=== PATIENT | female | born 1950 | race Caucasian/White ===

== ENCOUNTER 2020-01-27 08:31 | Inpatient (IN) | payer MEDICARE, OTHER ==
[2020-01-27] VITALS (9 sets, daily range): BP systolic 97–132; BP diastolic 51–59
[~2020-01-27] VITALS: Ht 157.4 cm; Wt 94.9 kg
--- NOTE | 2020-01-27 09:05 | NUR ---
PATIENT STATES HAS AN OPEN AREA ON BUTTOCK AREA. DENIES WANTING PICTURE TAKEN.
[2020-01-27 09:12] LABS: HEMATOCRIT 36.2 % (37.0-47.0); MEAN CELL VOLUME 93.5 fl (81.0-99.0); MEAN CORPUSCULAR HGB 30.7 pg (27.0-31.0); MEAN CORPUSCULAR HGB CONC 32.9 g/dl (33.0-37.0); MEAN PLATELET VOLUME 9.8 fl (9.6-12.3); PLATELET COUNT AUTOMATED 508 10*3/uL (130-400); RED BLOOD COUNT 3.87 10*6/uL (4.10-5.10); RED CELL DISTRI WIDTH 13.3 % (0-14.5); WHITE BLOOD COUNT 11.9 10*3/uL (4.8-10.8)
[2020-01-27 09:23] LABS: INTERNATIONAL NORM RATIO 1.1 (2.0-3.5)
[2020-01-27 09:27] LABS: ALBUMIN 2.3 gm/dl (3.1-4.5); ALKALINE PHOSPHATASE 111 U/L (45-117); CHLORIDE 92 mmol/L (98-107); CREATININE 2.76 mg/dL (0.55-1.02); LIPASE 56 U/L (73-393); SGOT/AST 22 IU/L (3-35); SGPT/ALT 34 U/L (12-78); SODIUM 127 mmol/L (136-145); TOTAL PROTEIN 7.5 gm/dL (6.4-8.2)
[2020-01-27 09:30] LABS: BUN 35 mg/dl (7-24); TROPONIN I < 0.015 ng/ml (<0.045)
[2020-01-27 09:32] LABS: PLATELET SUFFICIENCY HIGH (NORMAL); TOTAL CELLS COUNTED 100 #CELLS
--- NOTE | 2020-01-27 09:32 | NUR ---
DAUGHTER NUMBER "LENNOX" [phone]
--- NOTE | 2020-01-27 11:34 | NUR ---
LYING IN BED RT LATERAL, RESPS EASY, EYES CLOSED.
--- NOTE | 2020-01-27 11:49 | NUR ---
PT STATES "I WISH THEY WOULD LET ME GO HOME". PT TELLS ME THAT SHE IS FEELING BETTER, STILL TIRED.
--- NOTE | 2020-01-27 12:14 | NUR ---
UPTO BEDSIDE COMMODE, TOLERATED WELL. PROVIDED URINE SPECIMIN.
[2020-01-27 12:36] LABS: BILIRUBIN NEGATIVE (NEGATIVE); BLOOD TRACE-LYSED (NEGATIVE); CLARITY CLOUDY (CLEAR); COLOR YELLOW (YELLOW); GLUCOSE 3+ (NEGATIVE); KETONE TRACE (NEGATIVE); LEUKO ESTERASE 2+ (NEGATIVE); NITRITE NEGATIVE (NEGATIVE); UROBILINOGEN 0.2 E.U./dl (0.2-1.0)
[2020-01-27 12:37] LABS: BACTERIA 3+; EPITHELIAL CELLS 21-30; RBC 21-30 rbc/hpf (0-2); WBC TNTC wbc/hpf (0-5)
[2020-01-27 12:41] LABS: YEAST 2+
--- NOTE | 2020-01-27 12:43 | NUR ---
DAUGHTER LENNOX CALLED FOR WELL BEING.
--- NOTE | 2020-01-27 13:37 | NUR ---
UNABLE TO TAKE PT TO ROOM 4009 D/T ROOM NEEDING CLEANED.
--- NOTE | 2020-01-27 14:30 | NUR ---
The assessment has been completed. NATHANIEL CLAY Time: 1430 A 69 year old FEMALE admitted to under services of DR. LIN SEWELL,BERTA Laughlin Pt. arrived via ambulatory from ER. Chief complaint: SENT FROM DR GEORGES OFFICE FOR HYPERGLYCEMIA. STATES SHE HAS BEEN FEELING LOUSY. REPORTS BLOOD SUGAR OF 550. NATHANIEL CLAY
--- NOTE | 2020-01-27 14:35 | NUR ---
PT REFUSING TO HAVE ANYONE LOOK AT BUTTOCKS WOUND. SHE STATES IS WAS AN ABSCESS AND WAS BEING TREATED BY DR ACOSTA WITH BACTRIM. EXPLAINED TO HER THAT WE JUST NEED TO PHOTOGRAPH AND MEASURE IT AND SHE CONTINUES TO REFUSE TREATMENT. WILL TELL DR CEBALLOS.
--- NOTE | 2020-01-27 15:00 | NUR ---
MED REC COMPLETE WITH PTS DAUGHTER LENNOX
[2020-01-27] MEDS ORDERED: TOPROL XL200 MG PO (15:19)
[2020-01-27] MEDS ORDERED: ALDACTONE100 MG PO (15:19)
[2020-01-27] MEDS ORDERED: DAILY VITE1 EACH PO (15:19)
[2020-01-27] MEDS ORDERED: SEPTDS PO (15:20)
[2020-01-27] MEDS ORDERED: VENT7GM INH (15:20)
[2020-01-27] MEDS ORDERED: ASPIRIN ADULT L81 M1 PO (15:20)
--- NOTE | 2020-01-27 15:27 | NUR ---
SPOKE WITH DR CEBALLOS REGARDING ADMISSION ORDERS. MED LIST COMPLETED OVER THE PHONE. STATES TO PUT IN SLIDING SCALE W COVERAGE Q4H, DIABETIC TEACHING, A NON CONCENTRATED SWEETS DIET, NORMAL SALINE @ 60ML/H, BMP IN AM, CONSULT DR BRADSHAW AND DR MAY. ORDERS VERIFIED AND REPEATED BACK.
--- NOTE | 2020-01-27 15:48 | NUR ---
DR BRADSHAW NOTIFIED OF NEW CONSULT. STATES TO KEEP FLUIDS @ 60ML/H, START 1G ROCEPHIN IV TOMORROW, OBTAIN URINE LYTES/CREATINE AND UREANITROGEN. ORDERS VERIFIED AND REPEATED BACK
--- NOTE | 2020-01-27 15:52 | NUR ---
DR MAY NOTIFIED OF NEW CONSULT. STATES TO MAKE PT NPO AFTER MIDNIGHT.
--- NOTE | 2020-01-27 17:25 | NUR ---
PT C/O 01/29 CHRONIC ACHING HIP/BACK PAIN. MEDICATED PER ORDER .WILL MONITOR FOR RELIEF. VOICES NO OTHER CONCERNS AT THIS TIME. RESTING IN BED. CALL LIGHT WITHIN REACH.
--- NOTE | 2020-01-27 18:16 | NUR ---
PT AGREEABLE TO DO WOUND MEASUREMENTS AND PHOTOS AT THIS TIME. WILL UPDATE WOUND SCREEN
--- NOTE | 2020-01-27 18:25 | NUR ---
TYLENOL EFFECTIVE PER PT
--- NOTE | 2020-01-27 18:29 | NUR ---
Patient resting quietly with no c/o discomfort. Respirations easy and regular. Vital signs stable. No overt distress. HISSOM,NATHANIEL
[2020-01-27 21:15] LABS: URINE CREATININE RANDOM 88.4 mg/dL
[2020-01-28] VITALS: BP 101/52
--- NOTE | 2020-01-28 04:03 | NUR ---
VALERIANO HOFFMAN [id number] Please refer to the physician's history and physical for past medical history, comorbid conditions, and allergies. Diagnosis: UTI ARF HYPERGLYCEMIA SEVERE SEPSIS DEHYDRATION Alexander Score: 21,LOW OR NO RISK WOUND DESCRIPTIONS: Wound Number: 1 Location of the wound: left buttocks Thickness: Full Size: 2.5cm x 1.5cm x 7.5cm Tunneling: none Undermining: none Sinus Tract: none Presence of Exudate: Purulent Amount: Moderate Color: Red, yellow Odor: None Periwound Skin Appearance: Erythema Wound edges: approximated Pain (associated with wound): none at time of assessment How does patient state this happened? pt stated this started about one month ago and she stated that if she needs anything on discharge her son in law will take care of it Surface the patient is resting on: Isoflex SKIN PREVENTION RECOMMENDATION: 1. Pressure redistribution support surface as appropriate 2. Elevate heels 3. Remove boots/TEDS every shift and reapply 4. Head of bed 30 degrees as tolerated 5. Assess nutrition and hydration 6. Manage moisture 7. Avoid the use of containment devices while in bed 8. Use absorptive products on surfaces limit layers of linens on bed 9. Turn and reposition every 1-2 hours in bed and every 1 hour in chair as tolerated 10. Weight shifts every 15 minutes while up in chair 11. Offloading with pillows or device to keep heels elevated off bed 12. Monitor skin at least every shift 13. Inspect under medical devices twice a day WOUND TREATMENT RECOMMENDATIONS: Dr. Shaw is already on consult Cleanse left buttocks with nss and apply sureprep around the wound lightly pack with maxorb rope and cover with dsd daily and prn for soiling. Wheelchair cushion when oob Patient states her son in law with take care of area of the area upon discharge
[2020-01-28 05:30] LABS: CREATININE 1.58 mg/dL (0.55-1.02); POTASSIUM 4.9 mmol/L (3.5-5.1)
[2020-01-28 06:05] LABS: HEMATOCRIT 30.5 % (37.0-47.0); MEAN CELL VOLUME 95.3 fl (81.0-99.0); MEAN CORPUSCULAR HGB 30.6 pg (27.0-31.0); MEAN CORPUSCULAR HGB CONC 32.1 g/dl (33.0-37.0); MEAN PLATELET VOLUME 9.7 fl (9.6-12.3); PLATELET COUNT AUTOMATED 428 10*3/uL (130-400); RED CELL DISTRI WIDTH 13.5 % (0-14.5); WHITE BLOOD COUNT 9.4 10*3/uL (4.8-10.8)
[2020-01-28 07:05] LABS: TOTAL CELLS COUNTED 100 #CELLS
[2020-01-28 07:06] LABS: PLATELET SUFFICIENCY HIGH (NORMAL); POLYCHROMASIA SLIGHT
--- NOTE | 2020-01-28 07:30 | NUR ---
PT RESTING IN BED. RESPS EASY AND NON LABORED. NO S/S OF DISTRESS NOTED. VSS. WHITE BOARD UPDATED. CALL LIGHT WITHIN REACH.
--- NOTE | 2020-01-28 07:36 | NUR ---
Spoke with Dr. Shaw regarding wound care recommendation and skin impairment. He states to go ahead and order the culture he wants to evaluate patient prior to ordering studies at this time. He stated to go ahead and put dressing change orders in and he will see her later today.
[2020-01-28 08:00] VITALS: BP 94/53
--- NOTE | 2020-01-28 08:02 | NUR ---
BLOOD SUGAR TAKEN FROM MORNING LAB WORK-197. PT IS NPO AND NO COVERAGE WILL BE GIVEN AT THIS TIME
--- NOTE | 2020-01-28 08:06 | NUR ---
WOUND CARE PREFORMED AT THIS TIME PER ORDERS AND CULTURE OBTAINED. PT TOLERATED WELL.
--- NOTE | 2020-01-28 10:19 | NUR ---
Shift chart check completed.
--- NOTE | 2020-01-28 11:07 | NUR ---
PER DR MAY PT CAN RESUME DIET-NO SURGERY TODAY AND IT IS OKAY TO DISCHARGE FROM HIS STANDPOINT
--- NOTE | 2020-01-28 11:21 | NUR ---
Face Boss in to talk to patient. Patient states lives at HOME with ALONE. There are 2 steps in the home. Physician: DAVE Pharmacy: [facility] health services: NONE Patient's level of ADLs: INDEPENDENT Patient has working utilities: YES DME: [facility] IF SHE SHE NEEDS IT Follow-up physician's appointment after d/c: PREFERS TO MAKE OWN AFTER DISCHARGE. Does patient want to access PORTAL?: NO Discharge plan PT LIVES AT HOME ALONE AND IS INDEPENDENT IN HER CARE. DENIES SHE WILL HAVE NEEDS ON DISCHARGE. PLAN IS TO RETURN HOME WHEN MEDICALLY STABLE. WILL CONTINUE TO FOLLOW. STATES SHE WILL HAVE A RIDE HOME.. BENEDICTO KOEHLER
[2020-01-28 12:00] VITALS: BP 110/50
--- NOTE | 2020-01-28 12:21 | NUR ---
Nutritional Support Services Note: Diet copy left with pt. Pt is not availabe at this time. NCS diet sheet given. Encouraged her to call me with any questions or concerns. Chrissy Woo Rdn Ld
[2020-01-28 16:00] VITALS: BP 119/63
--- NOTE | 2020-01-28 16:07 | NUR ---
PT C/O 01/29 CHRONIC ACHING BACK/HIP PAIN. MEDICATED PER ORDER .WILL MONITOR FOR RELIEF. VOICES NO OTHER CONCERNS AT THIS TIME. RESTING IN BED TALKING TO HER GRANDSON. CALL LIGHT WITHIN REACH
--- NOTE | 2020-01-28 17:07 | NUR ---
TYLENOL EFFECTIVE PER PT
[2020-01-28 20:00] VITALS: BP 91/53
--- NOTE | 2020-01-28 22:08 | NUR ---
BP LOW 92/50; TOPROL HELD FOR 2200. PT VERBALIZES OK AND THAT HER PRESSURE HAS BEEN RUNNING LOW. EDUCATED TO ALERT NURSE FOR SYMPTOMS; VERBALIZED UNDERSTANDING. CALL LIGTH IN REACH.
--- NOTE | 2020-01-28 22:11 | NUR ---
ATTEMPT TO COMPLETE WOUND CARE AT THIS TIME. PLEASANTLY REFUSING AND STATES DOES NOT WANT IT "MESSED WITH" AND WOULD RATHER RN PLACE AN ABD PAD OVER THE AREA TO ABSORB DRAINAGE. EDUCATED ON ORDERS REC'D FROM WOUND CARE AND DOCTOR AND RATIONALE; PT VERBALIZES UNDERSTANDING AND STILL REQUESTING ABD.
--- NOTE | 2020-01-28 23:38 | NUR ---
WOUND CARE TO BUTTOCK INCLUDED CLEANING WITH NSS AND APPLYING ABD PAD PER REQUEST. PT REFUSING TO HAVE PACKED PER ORDERS AT THIS TIME. LINENS CHANGED AND NEW BED PAD. ADDITIONAL ABD PAD PROVIDED AT BEDSIDE FOR SOILAGE.
[2020-01-29 01:49] VITALS: BP 108/54
--- NOTE | 2020-01-29 07:45 | NUR ---
PATIENT'S BUTTOCK WOUND CLEANSED, PACKED WITH MAXORB, AND COVERED WITH DRY, STERILE, DRESSING, PT TOLERATED WELL.
[2020-01-29 08:00] VITALS: BP 108/66; BP 128/70
[2020-01-29 08:09] LABS: CREATININE,URINE 84.4 mg/dL (Not Estab.)
--- NOTE | 2020-01-29 08:12 | NUR ---
PT MEDICATED WITH PO TYLENOL AT THIS TIME PER ORDER FOR COMPLAINTS OF BIALT LEG PAIN 05/01. WILL MONITOR FOR EFFECTIVENESS.
--- NOTE | 2020-01-29 09:12 | NUR ---
PER PATIENT, PRN TYLENOL HAS BEEN EFFECTIVE. RESTING AT THIS TIME.
[2020-01-29 12:00] VITALS: BP 103/70
--- NOTE | 2020-01-29 14:40 | NUR ---
PT DENIES ANY NEEDS AT THIS TIME. RESTING WITH NO COMPLAINTS. DRESSING STILL DRY/INTACT TO BUTTOCKS.
--- NOTE | 2020-01-29 15:40 | NUR ---
PATIENT MEDICATED WITH PO TYLENOL AT THIS TIME PER ORDER FOR COMPLAINTS OF BILAT LEG PAIN 03/31. WILL MONITOR FOR EFFECTIVENESS
[2020-01-29 16:00] VITALS: BP 115/65
[2020-01-29 20:00] VITALS: BP 116/59
--- NOTE | 2020-01-29 21:09 | NUR ---
WOUND CARE COMPLETED AT THIS TIME PER ORDERS. PT TOLERATED WELL.
--- NOTE | 2020-01-29 23:55 | NUR ---
TYLENOL GIVEN PER PT REQUEST FOR C/O ARTHRITIC PAIN TO HANDS.
[2020-01-30] VITALS: BP 121/62
[2020-01-30 06:17] LABS: HEMATOCRIT 30.8 % (37.0-47.0); MEAN CELL VOLUME 96.9 fl (81.0-99.0); MEAN CORPUSCULAR HGB 30.2 pg (27.0-31.0); MEAN CORPUSCULAR HGB CONC 31.2 g/dl (33.0-37.0); MEAN PLATELET VOLUME 9.8 fl (9.6-12.3); PLATELET COUNT AUTOMATED 382 10*3/uL (130-400); RED BLOOD COUNT 3.18 10*6/uL (4.10-5.10); RED CELL DISTRI WIDTH 13.8 % (0-14.5); WHITE BLOOD COUNT 8.1 10*3/uL (4.8-10.8)
[2020-01-30 06:23] LABS: BUN 17 mg/dl (7-24); CHLORIDE 113 mmol/L (98-107); POTASSIUM 4.3 mmol/L (3.5-5.1); SODIUM 138 mmol/L (136-145)
[2020-01-30 06:52] LABS: BASOPHILS 1 % (0-1); PLATELET SUFFICIENCY NORMAL (NORMAL); TOTAL CELLS COUNTED 100 #CELLS
[2020-01-30 08:00] VITALS: BP 110/64
--- NOTE | 2020-01-30 08:55 | NUR ---
PT MEDICATED WITH TYLENOL UPON REQUEST FOR PAIN IN LEGS AND ABSCESS 03/01. WILL MONITOR.
--- NOTE | 2020-01-30 09:55 | NUR ---
PT STATES TYLENOL WAS EFFECTIVE. DRESSING CHANGE COMPLETE AT THIS TIME AND REPEAT WOUND CULTURE OBTAINED. PT TOLERATED WELL.
[2020-01-30 12:00] VITALS: BP 114/58
[2020-01-30 16:00] VITALS: BP 100/64
--- NOTE | 2020-01-30 19:54 | NUR ---
MEDICATED WITH TYLENOL FOR C/O PAIN.
[2020-01-30 20:00] VITALS: BP 112/70
--- NOTE | 2020-01-30 22:00 | NUR ---
RESTING IN BED WITH EYES CLOSED; TYLENOL APPARENTLY EFFECTIVE. AROUSES EASILY FOR MEDICATION. VOICES NO C/O AT THIS TIME. CALL LIGHT WITHIN REACH.
[2020-01-31] VITALS: BP 105/51
--- NOTE | 2020-01-31 | NUR ---
Pt. blood sugar result 263. Covered with 6 units of HUMALOG Insulin as ordered. ISH CEVALLOS
--- NOTE | 2020-01-31 02:29 | NUR ---
Patient resting quietly with no c/o discomfort. Respirations easy and regular. Vital signs stable. No overt distress. ISH CEVALLOS
--- NOTE | 2020-01-31 04:51 | NUR ---
TYLENOL GIVEN PER PATIENT REQUEST FOR COMPLAINTS OF PAIN RATED 5/10. WILL ASSESS EFFECTIVENESS.
[2020-01-31 08:00] VITALS: BP 105/53
--- NOTE | 2020-01-31 10:20 | NUR ---
Nutritional Support Services Note: Follow up done with pt for NCS diet. Discussing diet and po intake. She states she lives alone and doesn't always do meals for herself. Discussed healhty eating options and proper portion sizes. Discussed need for protein in diet. Encouraged follow up if needed. All quesitons were answered. Chrissy Woo Rdn Ld
--- NOTE | 2020-01-31 11:52 | NUR ---
PT CONTINUES TO DENY SHE HAS NEEDS AT HOME. STATES I HAVE EVERYTHING I NEED ALREADY. CAN BE DISCHARGED TO HOME WHEN MEDICALLY STABLE.
[2020-01-31 12:00] VITALS: BP 116/60
--- NOTE | 2020-01-31 13:00 | NUR ---
EATING LUNCH. NOT AVAILALBE FOR ECHO.
[2020-01-31] MEDS ORDERED: GLIMEPIRIDE4 M1 PO (15:48)
[2020-01-31 16:00] VITALS: BP 112/56
--- NOTE | 2020-01-31 16:14 | NUR ---
PT REFUSES HOME HEALTH, STATES I HAVE EVERYTHING IN NEED ALREADY.
--- NOTE | 2020-01-31 16:37 | NUR ---
PATIENT WAS ALREADY DRESSED AND READY TO GO. FRESH DRESSINGS HAD ALREADY BEEN APPLIE, SHE DID NOT WANT PHOTOS TAKEN
--- NOTE | 2020-01-31 16:44 | NUR ---
Discharge instructions reviewed with patient/family. Patient receptive and verbalizes understanding. Follow-up care arranged. Written instructions given to patient/family. ESTHER GERONIMO
== END 2020-01-31 16:44 | disposition home or self-care (01) | DRG 682 ==
LOC: ED 08:31 → EDHOLD 13:04 → 4E 13:04 → 4NE 13:32 → 4E 14:00
PROVIDERS: Emergency Medicine; Internal Medicine; Internal Medicine Nephrology; ADMIT Internal Medicine
DX: N17.0 Acute kidney failure with tubular necrosis (principal); E11.00 Type 2 diabetes mellitus with hyperosmolarity without nonketotic hyperglycemic-hyperosmolar coma (NKHHC); L02.31 Cutaneous abscess of buttock; E87.1 Hypo-osmolality and hyponatremia; N39.0 Urinary tract infection, site not specified; E11.22 Type 2 diabetes mellitus with diabetic chronic kidney disease; I12.9 Hypertensive chronic kidney disease with stage 1 through stage 4 chronic kidney disease, or unspecified chronic kidney disease; N18.9 Chronic kidney disease, unspecified; E86.0 Dehydration; E87.8 Other disorders of electrolyte and fluid balance, not elsewhere classified; J44.9 Chronic obstructive pulmonary disease, unspecified; M19.90 Unspecified osteoarthritis, unspecified site; E87.5 Hyperkalemia; E11.65 Type 2 diabetes mellitus with hyperglycemia; E66.01 Morbid (severe) obesity due to excess calories; Z68.38 Body mass index [BMI] 38.0-38.9, adult; Z88.0 Allergy status to penicillin; Z98.891 History of uterine scar from previous surgery; Z91.19 Patient's noncompliance with other medical treatment and regimen

== ENCOUNTER 2021-07-11 20:01 | Emergency (ER) | payer MEDICARE, OTHER ==
[~2021-07-11 20:01] MED LIST: ALDACTONE100 MG PO; ASPIRIN ADULT L81 M1 PO; DAILY VITE1 EACH PO; GLIMEPIRIDE4 M1 PO; SEPTDS PO; TOPROL XL200 MG PO; VENT7GM INH
[2021-07-11] MEDS ORDERED: SEPTDS PO (20:16)
[2021-07-11 20:33] LABS: BASO % 0.4 % (0.0-1.0); EOS % 0.4 % (1.0-4.0); HEMATOCRIT 40.9 % (37.0-47.0); LYMPH # 2.4 10*3/uL (1.3-4.4); LYMPH % 22.6 % (27.0-41.0); MEAN CELL VOLUME 94.9 fl (81.0-99.0); MEAN CORPUSCULAR HGB 31.3 pg (27.0-31.0); MEAN PLATELET VOLUME 10.1 fl (9.6-12.3); MONO # 0.7 10*3/uL (0.1-1.0); MONO % 6.9 % (3.0-9.0); NEUT # 7.3 10*3/uL (2.3-7.9); NEUT % 69.2 % (47.0-73.0); PLATELET COUNT AUTOMATED 316 10*3/uL (130-400); RED BLOOD COUNT 4.31 10*6/uL (4.10-5.10); RED CELL DISTRI WIDTH 15.3 % (0-14.5); WHITE BLOOD COUNT 10.5 10*3/uL (4.8-10.8)
[2021-07-11 20:55] LABS: ALBUMIN 2.9 gm/dl (3.1-4.5); CREATININE 2.14 mg/dL (0.55-1.02); POTASSIUM 3.1 mmol/L (3.5-5.1); TOTAL PROTEIN 6.9 gm/dL (6.4-8.2)
== END 2021-07-12 00:32 | disposition home or self-care (01) ==
LOC: ED 20:01
PROVIDERS: Internal Medicine
DX: N17.9 Acute kidney failure, unspecified (principal); E87.8 Other disorders of electrolyte and fluid balance, not elsewhere classified; E88.09 Other disorders of plasma-protein metabolism, not elsewhere classified; Z88.0 Allergy status to penicillin; Z79.899 Other long term (current) drug therapy

== ENCOUNTER 2022-05-10 13:49 | Inpatient (IN) | payer MEDICARE, OTHER ==
[~2022-05-10] VITALS: Ht 165.1 cm; Wt 105.6 kg
[2022-05-10 14:05] LABS: ABG BASE EXCESS -4.7 mmol/L (-2.0-2.0); ARTERIAL BLOOD GAS PH 7.201 (7.35-7.45); ARTERIAL BLOOD GAS PO2 448.7 (80-90)
[2022-05-10 14:12] VITALS: BP 156/82
[2022-05-10 14:50] LABS: CREATININE 1.3 mg/dL (0.55-1.02); POTASSIUM 5.8 mmol/L (3.5-5.1); TOTAL PROTEIN 7.6 gm/dL (6.4-8.2)
[2022-05-10 14:55] LABS: ACT PARTIAL THROMBO TIME 28.2 SECONDS (20.0-32.1); INTERNATIONAL NORM RATIO 1.1 (2.0-3.5)
[2022-05-10 15:12] LABS: BILIRUBIN 1+ (Negative); BLOOD Negative (Negative); CLARITY Cloudy (Clear); COLOR Dark Yellow (Yellow); GLUCOSE 2+ (Negative); KETONE Trace (Negative); LEUKO ESTERASE 1+ (Negative); NITRITE Negative (Negative); PH 5.5 (4.5-8.0); SPECIFIC GRAVITY 1.025 (1.001-1.030)
[2022-05-10 15:43] LABS: HYALINE CAST 16-20; WBC 21-30 wbc/hpf (0-5)
[2022-05-10 15:44] LABS: BACTERIA 2+; EPITHELIAL CELLS 16-20
[2022-05-10 15:47] LABS: BASO # 0.1 10*3/uL (0.0-0.1); BASO % 0.5 % (0.0-1.0); EOS # 0.1 10*3/uL (0.0-0.4); EOS % 0.6 % (1.0-4.0); HEMATOCRIT 46.5 % (37.0-47.0); LYMPH # 1.4 10*3/uL (1.3-4.4); LYMPH % 13.3 % (27.0-41.0); MEAN CELL VOLUME 99.6 fl (81.0-99.0); MEAN CORPUSCULAR HGB 30.8 pg (27.0-31.0); MEAN PLATELET VOLUME 11.7 fl (9.6-12.3); MONO # 0.7 10*3/uL (0.1-1.0); MONO % 6.9 % (3.0-9.0); NEUT % 77.4 % (47.0-73.0); PLATELET COUNT AUTOMATED 165 10*3/uL (130-400); RED BLOOD COUNT 4.67 10*6/uL (4.10-5.10); RED CELL DISTRI WIDTH 15.6 % (0-14.5); WHITE BLOOD COUNT 10.4 10*3/uL (4.8-10.8)
[2022-05-10 16:42] LABS: ABG BASE EXCESS 0.3 mmol/L (-2.0-2.0); ARTERIAL BLOOD GAS PH 7.265 (7.35-7.45)
[2022-05-10] MEDS ORDERED: DULOXETINE HCL30 MG PO (19:11)
[2022-05-10 19:47] VITALS: BP 121/58
[2022-05-10 20:15] VITALS: BP 133/60
[2022-05-10 20:57] LABS: ABG BASE EXCESS 1.2 mmol/L (-2.0-2.0); ARTERIAL BLOOD GAS PH 7.275 (7.35-7.45); ARTERIAL BLOOD GAS PO2 104.9 (80-90)
[2022-05-10] MEDS ORDERED: AMARYL4 MG PO (21:04)
[2022-05-10] MEDS ORDERED: PROVENTIL HFA6.7 GM INH (21:07)
[2022-05-10] MEDS ORDERED: ADVIL200 M1 PO (21:08)
[2022-05-10 23:13] LABS: BASO % 0.4 % (0.0-1.0); EOS # 0.2 10*3/uL (0.0-0.4); EOS % 1.5 % (1.0-4.0); HEMATOCRIT 45.9 % (37.0-47.0); LYMPH # 2.5 10*3/uL (1.3-4.4); LYMPH % 23.8 % (27.0-41.0); MEAN CELL VOLUME 100.7 fl (81.0-99.0); MEAN CORPUSCULAR HGB 30.7 pg (27.0-31.0); MEAN CORPUSCULAR HGB CONC 30.5 g/dl (33.0-37.0); MEAN PLATELET VOLUME 12.7 fl (9.6-12.3); MONO # 1.2 10*3/uL (0.1-1.0); MONO % 11.9 % (3.0-9.0); NEUT # 6.4 10*3/uL (2.3-7.9); NEUT % 62.1 % (47.0-73.0); PLATELET COUNT AUTOMATED 159 10*3/uL (130-400); RED BLOOD COUNT 4.56 10*6/uL (4.10-5.10); RED CELL DISTRI WIDTH 15.5 % (0-14.5); WHITE BLOOD COUNT 10.4 10*3/uL (4.8-10.8)
[2022-05-10 23:29] LABS: CREATININE 1.25 mg/dL (0.55-1.02)
[2022-05-11] VITALS: BP 90/55
[2022-05-11 04:00] VITALS: BP 129/75
[2022-05-11 06:09] LABS: CREATININE 1.32 mg/dL (0.55-1.02); POTASSIUM 4.7 mmol/L (3.5-5.1); TOTAL PROTEIN 6.5 gm/dL (6.4-8.2)
[2022-05-11 06:30] LABS: BASO # 0.1 10*3/uL (0.0-0.1); BASO % 0.4 % (0.0-1.0); EOS # 0.4 10*3/uL (0.0-0.4); EOS % 3.8 % (1.0-4.0); HEMATOCRIT 44.8 % (37.0-47.0); LYMPH # 2.6 10*3/uL (1.3-4.4); LYMPH % 22.2 % (27.0-41.0); MEAN CELL VOLUME 102.5 fl (81.0-99.0); MEAN CORPUSCULAR HGB 30.9 pg (27.0-31.0); MEAN CORPUSCULAR HGB CONC 30.1 g/dl (33.0-37.0); MEAN PLATELET VOLUME 12.3 fl (9.6-12.3); MONO # 1.2 10*3/uL (0.1-1.0); MONO % 10.7 % (3.0-9.0); NEUT # 7.2 10*3/uL (2.3-7.9); NEUT % 62.6 % (47.0-73.0); PLATELET COUNT AUTOMATED 137 10*3/uL (130-400); RED BLOOD COUNT 4.37 10*6/uL (4.10-5.10); RED CELL DISTRI WIDTH 15.4 % (0-14.5); WHITE BLOOD COUNT 11.6 10*3/uL (4.8-10.8)
[2022-05-11 08:00] VITALS: BP 99/56
[2022-05-11 09:39] LABS: ABG BASE EXCESS 3.5 mmol/L (-2.0-2.0); ARTERIAL BLOOD GAS PH 7.295 (7.35-7.45); ARTERIAL BLOOD GAS PO2 101.7 (80-90)
[2022-05-11 11:28] VITALS: BP 106/61
[2022-05-11 16:00] VITALS: BP 102/52
[2022-05-11 20:00] VITALS: BP 115/67
[2022-05-11 22:14] LABS: ABG BASE EXCESS 4.6 mmol/L (-2.0-2.0); ARTERIAL BLOOD GAS PH 7.361 (7.35-7.45); ARTERIAL BLOOD GAS PO2 99.2 (80-90)
[2022-05-12] VITALS: BP 113/59
[2022-05-12 04:00] VITALS: BP 118/68
[2022-05-12 05:32] LABS: CREATININE 1.15 mg/dL (0.55-1.02)
[2022-05-12 06:15] LABS: BASO % 0.3 % (0.0-1.0); EOS # 0.5 10*3/uL (0.0-0.4); EOS % 5.4 % (1.0-4.0); HEMATOCRIT 41.8 % (37.0-47.0); LYMPH # 2.5 10*3/uL (1.3-4.4); LYMPH % 28.9 % (27.0-41.0); MEAN CELL VOLUME 100.2 fl (81.0-99.0); MEAN CORPUSCULAR HGB 30.7 pg (27.0-31.0); MEAN CORPUSCULAR HGB CONC 30.6 g/dl (33.0-37.0); MEAN PLATELET VOLUME 12.3 fl (9.6-12.3); MONO % 11.4 % (3.0-9.0); NEUT # 4.7 10*3/uL (2.3-7.9); NEUT % 53.8 % (47.0-73.0); PLATELET COUNT AUTOMATED 131 10*3/uL (130-400); RED BLOOD COUNT 4.17 10*6/uL (4.10-5.10); RED CELL DISTRI WIDTH 15.5 % (0-14.5); WHITE BLOOD COUNT 8.7 10*3/uL (4.8-10.8)
[2022-05-12 07:58] VITALS: BP 115/70
[2022-05-12 12:00] VITALS: BP 112/64
[2022-05-12 16:00] VITALS: BP 112/64
[2022-05-12 20:00] VITALS: BP 113/72
[2022-05-13] VITALS: BP 119/69
[2022-05-13 04:00] VITALS: BP 114/53
[2022-05-13 04:42] LABS: BASO % 0.3 % (0.0-1.0); EOS # 0.5 10*3/uL (0.0-0.4); EOS % 4.9 % (1.0-4.0); HEMATOCRIT 40.2 % (37.0-47.0); LYMPH # 2.3 10*3/uL (1.3-4.4); LYMPH % 25.5 % (27.0-41.0); MEAN CELL VOLUME 98.8 fl (81.0-99.0); MEAN CORPUSCULAR HGB 31.2 pg (27.0-31.0); MEAN CORPUSCULAR HGB CONC 31.6 g/dl (33.0-37.0); MEAN PLATELET VOLUME 11.8 fl (9.6-12.3); MONO % 10.8 % (3.0-9.0); NEUT # 5.4 10*3/uL (2.3-7.9); NEUT % 58.4 % (47.0-73.0); PLATELET COUNT AUTOMATED 147 10*3/uL (130-400); RED BLOOD COUNT 4.07 10*6/uL (4.10-5.10); RED CELL DISTRI WIDTH 15.5 % (0-14.5); WHITE BLOOD COUNT 9.2 10*3/uL (4.8-10.8)
[2022-05-13 05:03] LABS: CHLORIDE 106 mmol/L (98-107); CREATININE 0.67 mg/dL (0.55-1.02); POTASSIUM 4.8 mmol/L (3.5-5.1); SODIUM 140 mmol/L (136-145)
[2022-05-13 05:07] LABS: BUN 26 mg/dl (7-24)
[2022-05-13 08:00] VITALS: BP 125/63
[2022-05-13 12:00] VITALS: BP 103/51
[2022-05-13 16:00] VITALS: BP 114/57
[2022-05-13 20:00] VITALS: BP 108/55
[2022-05-14] VITALS: BP 109/61
[2022-05-14 04:00] VITALS: BP 98/55
[2022-05-14 05:38] LABS: BUN 19 mg/dl (7-24); CHLORIDE 103 mmol/L (98-107); CREATININE 0.62 mg/dL (0.55-1.02); POTASSIUM 5.2 mmol/L (3.5-5.1); SODIUM 138 mmol/L (136-145)
[2022-05-14 08:00] VITALS: BP 113/47
[2022-05-14 12:00] VITALS: BP 117/51
== END 2022-05-14 15:15 | disposition home or self-care (01) | DRG 189 ==
LOC: ED 13:49 → EDHOLD 17:18 → ICCU 17:18
PROVIDERS: Emergency Medicine; Internal Medicine Critical Care Medicine; ADMIT Internal Medicine; ATTEND Internal Medicine
PROC: 5A09357 Assistance with Respiratory Ventilation, Less than 24 Consecutive Hours, Continuous Positive Airway Pressure (ICD-10-PCS; principal; 2022-05-10)
PROC: 5A09357 Assistance with Respiratory Ventilation, Less than 24 Consecutive Hours, Continuous Positive Airway Pressure (ICD-10-PCS; 2022-05-11)
PROC: 5A09357 Assistance with Respiratory Ventilation, Less than 24 Consecutive Hours, Continuous Positive Airway Pressure (ICD-10-PCS; 2022-05-12)
PROC: 5A09357 Assistance with Respiratory Ventilation, Less than 24 Consecutive Hours, Continuous Positive Airway Pressure (ICD-10-PCS; 2022-05-13)
PROC: 5A09357 Assistance with Respiratory Ventilation, Less than 24 Consecutive Hours, Continuous Positive Airway Pressure (ICD-10-PCS; 2022-05-14)
DX: J96.22 Acute and chronic respiratory failure with hypercapnia (principal); E43 Unspecified severe protein-calorie malnutrition; G93.41 Metabolic encephalopathy; N17.0 Acute kidney failure with tubular necrosis; G82.20 Paraplegia, unspecified; N39.0 Urinary tract infection, site not specified; G83.4 Cauda equina syndrome; E87.3 Alkalosis; J44.1 Chronic obstructive pulmonary disease with (acute) exacerbation; J96.21 Acute and chronic respiratory failure with hypoxia; F32.9 Major depressive disorder, single episode, unspecified; E66.01 Morbid (severe) obesity due to excess calories; J44.9 Chronic obstructive pulmonary disease, unspecified; M19.90 Unspecified osteoarthritis, unspecified site; E87.5 Hyperkalemia; E11.65 Type 2 diabetes mellitus with hyperglycemia; E66.8 Other obesity; I50.9 Heart failure, unspecified; Z68.38 Body mass index [BMI] 38.0-38.9, adult; Z91.14 Patient's other noncompliance with medication regimen; Z88.0 Allergy status to penicillin; Z98.891 History of uterine scar from previous surgery; Z98.51 Tubal ligation status; Z74.01 Bed confinement status

== ENCOUNTER 2022-07-22 19:05 | Emergency (ER) | payer MEDICARE, OTHER ==
[~2022-07-22] VITALS: Ht 160 cm; Wt 108.0 kg
[~2022-07-22 19:05] MED LIST changes: +ADVIL200 M1 PO; +AMARYL4 MG PO; +CARDIZEM CD120 M2 PO; +CEFUROXIME AXE250 MG PO; +DULOXETINE HCL30 MG PO; +ELIQUIS5 M1 PO; +Lantus SC; +METOPROLOL SUC200 M1 PO; +PROVENTIL HFA6.7 GM INH; +TRAD5TAB1 PO
[2022-07-22 19:38] LABS: BASO % 0.3 % (0.0-1.0); EOS # 0.3 10*3/uL (0.0-0.4); EOS % 2.7 % (1.0-4.0); HEMATOCRIT 35.7 % (37.0-47.0); LYMPH # 1.7 10*3/uL (1.3-4.4); LYMPH % 13.6 % (27.0-41.0); MEAN CELL VOLUME 105.3 fl (81.0-99.0); MEAN CORPUSCULAR HGB CONC 29.4 g/dl (33.0-37.0); MEAN PLATELET VOLUME 13.4 fl (9.6-12.3); MONO # 1.1 10*3/uL (0.1-1.0); MONO % 8.7 % (3.0-9.0); NEUT % 74.3 % (47.0-73.0); PLATELET COUNT AUTOMATED 253 10*3/uL (130-400); RED BLOOD COUNT 3.39 10*6/uL (4.10-5.10); RED CELL DISTRI WIDTH 15.5 % (0-14.5); WHITE BLOOD COUNT 12.2 10*3/uL (4.8-10.8)
[2022-07-22 19:51] LABS: ALKALINE PHOSPHATASE 96 U/L (45-117); BUN 33 mg/dl (7-24); CHLORIDE 104 mmol/L (98-107); CREATININE 0.76 mg/dL (0.55-1.02); POTASSIUM 4.9 mmol/L (3.5-5.1); SGOT/AST 6 IU/L (3-35); SGPT/ALT 22 U/L (12-78); SODIUM 144 mmol/L (136-145)
[2022-07-22] MEDS ORDERED: Amaryl2 MG PO (20:37)
[2022-07-22] MEDS ORDERED: LANTUS SOL100 UNIT/1 SC (20:38)
[2022-07-22] MEDS ORDERED: TRAD5TAB1 PO (20:38)
[2022-07-22] MEDS ORDERED: NOVOLOG10 ML SC (20:39)
[2022-07-22 23:35] LABS: BILIRUBIN Negative (Negative); BLOOD Negative (Negative); CLARITY Clear (Clear); COLOR Yellow (Yellow); GLUCOSE Negative (Negative); KETONE Negative (Negative); LEUKO ESTERASE Negative (Negative); NITRITE Negative (Negative); PH 5.5 (4.5-8.0); SPECIFIC GRAVITY 1.025 (1.001-1.030)
[2022-07-25] MEDS ORDERED: Diltiazem HCl120 MG PO (13:18)
[2022-07-25] MEDS ORDERED: DRIZALMA SPRINK30 MG PO (13:20)
[2022-07-25] MEDS ORDERED: BREO ELLIPTA 11 EACH INH (16:48)
[2022-07-25] MEDS ORDERED: ADVAIR 250/501 EA INH (16:52)
[2022-07-25] MEDS ORDERED: ALBUTEROL2.5 MG/0.5 INH (16:55)
[2022-07-25] MEDS ORDERED: ACETAMINOPHEN500 M4 PO (16:57)
[2022-07-25] MEDS ORDERED: PROAIR HFA8.5 GM INH (16:58)
== END 2022-07-23 00:36 ==
LOC: ED 19:05
PROVIDERS: Internal Medicine
DX: J96.12 Chronic respiratory failure with hypercapnia (principal); N17.9 Acute kidney failure, unspecified; D72.829 Elevated white blood cell count, unspecified; D64.9 Anemia, unspecified; E44.0 Moderate protein-calorie malnutrition; I50.9 Heart failure, unspecified; I11.0 Hypertensive heart disease with heart failure; E11.649 Type 2 diabetes mellitus with hypoglycemia without coma; Z88.0 Allergy status to penicillin; Z79.899 Other long term (current) drug therapy; Z98.890 Other specified postprocedural states; Z98.51 Tubal ligation status